=== PATIENT | male | born 1985 | race Caucasian/White ===

== ENCOUNTER 2017-05-28 05:43 | Emergency (ER) | payer OTHER, MEDICAID ==
[2017-05-28] MEDS: IBUPROFEN 800 MG TAB PO (06:09)
== END 2017-05-28 06:18 | disposition home or self-care (01) ==
LOC: FTE 05:43
DX: M54.6 Pain in thoracic spine (principal)
CPT/HCPCS: 99283

== ENCOUNTER 2018-09-30 18:00 | Emergency (ER) | payer OTHER ==
[2018-09-30] MEDS: TETRACAINE 0.5% 4 ML OPH LEFT EYE (18:52)
[2018-09-30] MEDS: FLUORESCEIN STRIP LEFT EYE (19:03)
== END 2018-09-30 19:56 | disposition home or self-care (01) ==
LOC: FTE 18:00
DX: H57.89 Other specified disorders of eye and adnexa (principal)
CPT/HCPCS: 99283; Z7502

== ENCOUNTER 2018-11-01 17:53 | Emergency (ER) | payer OTHER | END 2018-11-01 20:16 | disposition home or self-care (01) | LOC: FTE 17:53 | DX: T15.92XA Foreign body on external eye, part unspecified, left eye, initial encounter (principal); X58.XXXA Exposure to other specified factors, initial encounter; Y92.9 Unspecified place or not applicable; Y93.9 Activity, unspecified | CPT/HCPCS: 99282; Z7502 ==